=== PATIENT | male | born 1965 | race Caucasian/White ===

== ENCOUNTER 2022-08-17 17:13 | Inpatient (IN) | payer OTHER ==
[2022-08-17 18:37] VITALS: BMI 21.6
[2022-08-17] MEDS ORDERED: ONDANSETRON *ODT* 4 MG TABLET SL PRN (19:13)
[2022-08-17] MEDS ORDERED: MAG HYDROX/AL HYDROX/SIMETH 30 ML UNIT-DOSE CUP PO PRN (19:13)
[2022-08-17] MEDS ORDERED: chlordiazePOXIDE HCL 25 MG CAPSULE PO PRN (19:13)
[2022-08-17] MEDS ORDERED: ACETAMINOPHEN 325 MG TABLET (FP) PO PRN ×2 (19:13)
[2022-08-17] MEDS ORDERED: LOPERAMIDE HCL 2 MG CAPSULE PO PRN (19:13)
[2022-08-17] MEDS ORDERED: DICYCLOMINE HCL 10 MG CAPSULE PO PRN (19:13)
[2022-08-17] MEDS ORDERED: BISMUTH SUBSALICYLATE 524 MG/30 ML PO PRN (19:13)
[2022-08-17] MEDS ORDERED: BENZOCAINE/MENTHOL (CHLORASEPTIC ) LOZENGE MM PRN (19:13)
[2022-08-17] MEDS ORDERED: IBUPROFEN 600 MG TABLET (FP) PO PRN (19:13)
[2022-08-17] MEDS ORDERED: MAGNESIUM HYDROX 2400MG/30ML ORAL SUSPENSION 30 ML CUP PO PRN (19:13)
[2022-08-17] MEDS ORDERED: NALOXONE HCL (KLOXXADO) 8 MG SPRAY NS PRN (19:13)
[2022-08-17] MEDS ORDERED: POLYETHYLENE GLYCOL (HEALTHYLAX) 3350 17 GM PACKET PO PRN (19:13)
[2022-08-17] MEDS ORDERED: MELATONIN 5 MG TABLETS PO SCH (22:00)
[2022-08-17] MEDS: ATORVASTATIN CA 40 MG TABLET (FP) PO SCH (22:23)
[2022-08-17] MEDS: THIAMINE HCL 100 MG TABLET (FP) PO SCH (22:24)
[2022-08-17] MEDS: chlordiazePOXIDE HCL 25 MG CAPSULE PO SCH (22:24)
[2022-08-17] MEDS: CARVEDILOL 12.5 MG TABLET (FP) PO SCH (22:24)
[2022-08-18] MEDS: chlordiazePOXIDE HCL 25 MG CAPSULE PO SCH ×4 (05:26→22:08)
[2022-08-18 08:49] LABS: HEMATOCRIT 38.5 % (35.4-49); HEMOGLOBIN 12.7 GM/dL (11.7-16.9); MCH 32.5 pg (25.7-33.7); MCHC 33.1 g/dl (32.0-35.9); MEAN CELL VOLUME 98.3 fl (80-96); MEAN PLT VOLUME 7.6 fl (7.5-11.1); PLATELET COUNT 242 10^3/uL (134-434); RBC 3.92 M/mm3 (4.00-5.60); RDW 14.3 % (11.9-15.9); WHITE BLOOD COUNT 4.2 K/mm3 (4.0-10.0)
[2022-08-18 08:55] LABS: ALBUMIN 3.6 g/dl (3.4-5.0); BLOOD UREA NITROGEN 12.1 mg/dL (7-18); CALCIUM 8.9 mg/dL (8.5-10.1)
[2022-08-18 09:00] LABS: CREATININE 0.8 mg/dL (0.55-1.3)
[2022-08-18 09:01] LABS: BILIRUBIN,TOTAL 1.1 mg/dL (0.2-1); TOT PROT 6.6 g/dl (6.4-8.2)
[2022-08-18] MEDS ORDERED: NICOTINE 21 MG/24 HOURS TOPICAL PATCH TD SCH (10:00)
[2022-08-18] MEDS: LOSARTAN POTASSIUM 50 MG TABLET PO SCH (10:11)
[2022-08-18] MEDS: CARVEDILOL 12.5 MG TABLET (FP) PO SCH ×2 (10:12→22:08)
[2022-08-18] MEDS: PRENATAL VITAMINS W/ FOLIC ACID TABLET (FP) PO SCH (10:12)
[2022-08-18] MEDS: NICOTINE 10 MG CARTRIDGE (INHALER) IH PRN (10:15)
[2022-08-18] MEDS ORDERED: ALBUTEROL SO4 HFA INHALER IH PRN (10:38)
[2022-08-18] MEDS ORDERED: NICOTINE 21 MG/24 HOURS TOPICAL PATCH TD PRN (10:41)
[2022-08-18] MEDS: NICOTINE POLACRILEX 4 MG GUM BUC PRN ×2 (18:10→20:51)
[2022-08-18] MEDS: BUDESONIDE/FORMETEROL FUMARATE 80/4.5 mcg INHALER IH SCH (22:08)
[2022-08-18] MEDS: THIAMINE HCL 100 MG TABLET (FP) PO SCH (22:08)
[2022-08-18] MEDS: traZODone HCL 50 MG TABLET (FP) PO PRN (22:08)
[2022-08-18] MEDS: ATORVASTATIN CA 40 MG TABLET (FP) PO SCH (22:08)
[2022-08-19] MEDS: chlordiazePOXIDE HCL 25 MG CAPSULE PO SCH ×4 (05:40→22:10)
[2022-08-19] MEDS: NICOTINE POLACRILEX 4 MG GUM BUC PRN ×4 (07:57→22:15)
[2022-08-19] MEDS: PRENATAL VITAMINS W/ FOLIC ACID TABLET (FP) PO SCH (10:02)
[2022-08-19] MEDS: CARVEDILOL 12.5 MG TABLET (FP) PO SCH ×2 (10:03→22:10)
[2022-08-19] MEDS: LOSARTAN POTASSIUM 50 MG TABLET PO SCH (10:04)
[2022-08-19] MEDS: BUDESONIDE/FORMETEROL FUMARATE 80/4.5 mcg INHALER IH SCH ×2 (10:04→22:09)
[2022-08-19] MEDS: hydrOXYzine PAMOATE 25 MG CAPSULE (FP) PO PRN (14:34)
[2022-08-19] MEDS: METHOCARBAMOL 500 MG TABLET PO PRN (14:34)
[2022-08-19] MEDS: GABAPENTIN 100 MG CAPSULE PO SCH ×2 (14:34→22:10)
[2022-08-19] MEDS: ESCITALOPRAM OXALATE 10 MG TABLET PO SCH (14:35)
[2022-08-19] MEDS ORDERED: traZODone HCL 50 MG TABLET (FP) PO SCH (22:00)
[2022-08-19] MEDS: ATORVASTATIN CA 40 MG TABLET (FP) PO SCH (22:10)
[2022-08-19] MEDS: THIAMINE HCL 100 MG TABLET (FP) PO SCH (22:10)
[2022-08-19] MEDS: traZODone HCL 50 MG TABLET (FP) PO PRN (22:12)
[2022-08-20] MEDS ORDERED: chlordiazePOXIDE HCL 10 MG CAPSULE PO PRN
[2022-08-20] MEDS: GABAPENTIN 100 MG CAPSULE PO SCH ×3 (05:21→22:16)
[2022-08-20] MEDS: chlordiazePOXIDE HCL 10 MG CAPSULE PO SCH ×4 (05:21→22:16)
[2022-08-20] MEDS: PRENATAL VITAMINS W/ FOLIC ACID TABLET (FP) PO SCH (10:12)
[2022-08-20] MEDS: IBUPROFEN 400 MG TABLET (FP) PO PRN (10:14)
[2022-08-20] MEDS: LOSARTAN POTASSIUM 50 MG TABLET PO SCH (10:14)
[2022-08-20] MEDS: CARVEDILOL 12.5 MG TABLET (FP) PO SCH ×2 (10:15→22:16)
[2022-08-20] MEDS: ESCITALOPRAM OXALATE 10 MG TABLET PO SCH (10:15)
[2022-08-20] MEDS: BUDESONIDE/FORMETEROL FUMARATE 80/4.5 mcg INHALER IH SCH ×2 (10:47→22:17)
[2022-08-20] MEDS: NICOTINE POLACRILEX 4 MG GUM BUC PRN ×2 (11:39→17:52)
[2022-08-20] MEDS: NICOTINE 10 MG CARTRIDGE (INHALER) IH PRN (21:00)
[2022-08-20] MEDS: ATORVASTATIN CA 40 MG TABLET (FP) PO SCH (22:16)
[2022-08-20] MEDS: traZODone HCL 50 MG TABLET (FP) PO PRN (22:16)
[2022-08-20] MEDS: THIAMINE HCL 100 MG TABLET (FP) PO SCH (22:16)
[2022-08-21] MEDS: GABAPENTIN 100 MG CAPSULE PO SCH ×3 (05:17→21:15)
[2022-08-21] MEDS: chlordiazePOXIDE HCL 10 MG CAPSULE PO SCH ×2 (05:17→17:37)
[2022-08-21] MEDS: CARVEDILOL 12.5 MG TABLET (FP) PO SCH ×2 (10:00→21:14)
[2022-08-21] MEDS: ESCITALOPRAM OXALATE 10 MG TABLET PO SCH (10:00)
[2022-08-21] MEDS: PRENATAL VITAMINS W/ FOLIC ACID TABLET (FP) PO SCH (10:00)
[2022-08-21] MEDS: BUDESONIDE/FORMETEROL FUMARATE 80/4.5 mcg INHALER IH SCH ×2 (10:00→21:17)
[2022-08-21] MEDS: METHOCARBAMOL 500 MG TABLET PO PRN (10:02)
[2022-08-21] MEDS: hydrOXYzine PAMOATE 25 MG CAPSULE (FP) PO PRN ×2 (10:02→20:51)
[2022-08-21] MEDS: LOSARTAN POTASSIUM 50 MG TABLET PO SCH (10:03)
[2022-08-21] MEDS: NICOTINE POLACRILEX 4 MG GUM BUC PRN ×2 (11:26→13:32)
[2022-08-21] MEDS: IBUPROFEN 400 MG TABLET (FP) PO PRN (17:39)
[2022-08-21] MEDS: traZODone HCL 50 MG TABLET (FP) PO PRN (21:14)
[2022-08-21] MEDS: ATORVASTATIN CA 40 MG TABLET (FP) PO SCH (21:15)
[2022-08-21] MEDS: THIAMINE HCL 100 MG TABLET (FP) PO SCH (21:18)
[2022-08-22] MEDS ORDERED: chlordiazePOXIDE HCL 10 MG CAPSULE PO ONE (05:00)
[2022-08-22] MEDS: GABAPENTIN 100 MG CAPSULE PO SCH (05:27)
[2022-08-22 05:54] VITALS: RESP 18; TEMP 97.5
[2022-08-22 09:21] VITALS: BP 122/81; PULSE 76
[2022-08-22] MEDS: BUDESONIDE/FORMETEROL FUMARATE 80/4.5 mcg INHALER IH SCH (10:13)
[2022-08-22] MEDS: PRENATAL VITAMINS W/ FOLIC ACID TABLET (FP) PO SCH (10:14)
[2022-08-22] MEDS: ESCITALOPRAM OXALATE 10 MG TABLET PO SCH (10:14)
[2022-08-22] MEDS: LOSARTAN POTASSIUM 50 MG TABLET PO SCH (10:14)
[2022-08-22] MEDS: CARVEDILOL 12.5 MG TABLET (FP) PO SCH ×2 (10:51→10:52)
== END 2022-08-22 10:18 | disposition home or self-care (01) | DRG 775 ==
LOC: YASAS 17:13 → Y6N 20:38
PROVIDERS: ADMIT Allergy & Immunology; ATTEND Surgery
PROC: HZ2ZZZZ Detoxification Services for Substance Abuse Treatment (ICD-10-PCS; principal; 2022-08-17)
DX: F10.230 Alcohol dependence with withdrawal, uncomplicated (principal); F17.213 Nicotine dependence, cigarettes, with withdrawal; F43.10 Post-traumatic stress disorder, unspecified; F41.9 Anxiety disorder, unspecified; F32.A Depression, unspecified; E78.5 Hyperlipidemia, unspecified; G47.00 Insomnia, unspecified; I10 Essential (primary) hypertension; J44.9 Chronic obstructive pulmonary disease, unspecified; I25.2 Old myocardial infarction; Z28.9 Immunization not carried out for unspecified reason; Z56.0 Unemployment, unspecified; Z59.01 Sheltered homelessness
CPT/HCPCS: 36415; 80053; 83036; 85027; 86780; C9803-CS; U0003; U0005

== ENCOUNTER 2022-09-10 16:19 | Inpatient (IN) | payer OTHER ==
[2022-09-10 16:57] VITALS: BMI 22.6
[2022-09-10] MEDS ORDERED: TRIMETHOBENZAMIDE HCL 200MG/2ML INJ IM ONE ×2 (17:23→17:34)
[2022-09-10] MEDS ORDERED: LORazepam 2 MG/ML SDV VIAL IM ONE (17:24)
[2022-09-10] MEDS ORDERED: MAG HYDROX/AL HYDROX/SIMETH 30 ML UNIT-DOSE CUP PO PRN (17:48)
[2022-09-10] MEDS ORDERED: NALOXONE HCL (KLOXXADO) 8 MG SPRAY NS PRN (17:48)
[2022-09-10] MEDS ORDERED: MAGNESIUM HYDROX 2400MG/30ML ORAL SUSPENSION 30 ML CUP PO PRN (17:48)
[2022-09-10] MEDS ORDERED: NICOTINE 10 MG CARTRIDGE (INHALER) IH PRN (17:48)
[2022-09-10] MEDS ORDERED: IBUPROFEN 600 MG TABLET (FP) PO PRN (17:48)
[2022-09-10] MEDS ORDERED: DICYCLOMINE HCL 10 MG CAPSULE PO PRN (17:48)
[2022-09-10] MEDS ORDERED: chlordiazePOXIDE HCL 25 MG CAPSULE PO PRN (17:48)
[2022-09-10] MEDS ORDERED: ONDANSETRON *ODT* 4 MG TABLET SL PRN (17:48)
[2022-09-10] MEDS ORDERED: BENZOCAINE/MENTHOL (CHLORASEPTIC ) LOZENGE MM PRN (17:48)
[2022-09-10] MEDS ORDERED: ACETAMINOPHEN 325 MG TABLET (FP) PO PRN (17:48)
[2022-09-10] MEDS ORDERED: LOPERAMIDE HCL 2 MG CAPSULE PO PRN (17:48)
[2022-09-10] MEDS ORDERED: guaiFENesin 200 MG/10 ML 10 ML UNIT-DOSE CUPS PO PRN (17:48)
[2022-09-10] MEDS ORDERED: IBUPROFEN 400 MG TABLET (FP) PO PRN (17:48)
[2022-09-10] MEDS ORDERED: BISMUTH SUBSALICYLATE 524 MG/30 ML PO PRN (17:48)
[2022-09-10] MEDS ORDERED: POLYETHYLENE GLYCOL (HEALTHYLAX) 3350 17 GM PACKET PO PRN (17:48)
[2022-09-10] MEDS ORDERED: MELATONIN 5 MG TABLETS PO SCH (22:00)
[2022-09-10] MEDS: THIAMINE HCL 100 MG TABLET (FP) PO SCH (22:50)
[2022-09-10] MEDS: METHOCARBAMOL 500 MG TABLET PO PRN (22:51)
[2022-09-10] MEDS: chlordiazePOXIDE HCL 25 MG CAPSULE PO SCH (22:52)
[2022-09-10] MEDS: hydrOXYzine PAMOATE 25 MG CAPSULE (FP) PO PRN (22:52)
[2022-09-11] MEDS: chlordiazePOXIDE HCL 25 MG CAPSULE PO SCH ×4 (06:17→22:17)
[2022-09-11] MEDS: PRENATAL VITAMINS W/ FOLIC ACID TABLET (FP) PO SCH (10:21)
[2022-09-11 11:01] LABS: HEMATOCRIT 39.8 % (35.4-49); HEMOGLOBIN 13.3 GM/dL (11.7-16.9); MCHC 33.3 g/dl (32.0-35.9); MEAN CELL VOLUME 98.8 fl (80-96); MEAN PLT VOLUME 8.3 fl (7.5-11.1); PLATELET COUNT 335 10^3/uL (134-434); RBC 4.02 M/mm3 (4.00-5.60); RDW 13.9 % (11.9-15.9); WHITE BLOOD COUNT 5.5 K/mm3 (4.0-10.0)
[2022-09-11 11:25] LABS: ALBUMIN 3.6 g/dl (3.4-5.0); BLOOD UREA NITROGEN 10.4 mg/dL (7-18); CALCIUM 9.6 mg/dL (8.5-10.1)
[2022-09-11 11:28] LABS: CREATININE 0.8 mg/dL (0.55-1.3)
[2022-09-11 11:29] LABS: BILIRUBIN,TOTAL 0.2 mg/dL (0.2-1)
[2022-09-11 11:30] LABS: TOT PROT 7.1 g/dl (6.4-8.2)
[2022-09-11] MEDS: ACETAMINOPHEN 325 MG TABLET (FP) PO PRN (17:20)
[2022-09-11] MEDS: NICOTINE POLACRILEX 2 MG GUM BUC PRN ×2 (17:22→22:56)
[2022-09-11] MEDS: METHOCARBAMOL 500 MG TABLET PO PRN (22:16)
[2022-09-11] MEDS: traZODone HCL 100 MG TABLET (FP) PO SCH (22:17)
[2022-09-11] MEDS: THIAMINE HCL 100 MG TABLET (FP) PO SCH (22:17)
[2022-09-11] MEDS: GABAPENTIN 100 MG CAPSULE PO SCH (22:17)
[2022-09-12] MEDS: chlordiazePOXIDE HCL 25 MG CAPSULE PO SCH ×4 (06:04→22:36)
[2022-09-12] MEDS: GABAPENTIN 100 MG CAPSULE PO SCH ×3 (06:04→22:33)
[2022-09-12] MEDS: NICOTINE POLACRILEX 2 MG GUM BUC PRN ×3 (07:35→22:40)
[2022-09-12] MEDS: ESCITALOPRAM OXALATE 10 MG TABLET PO SCH (10:34)
[2022-09-12] MEDS: PRENATAL VITAMINS W/ FOLIC ACID TABLET (FP) PO SCH (10:34)
[2022-09-12] MEDS ORDERED: ALBUTEROL SO4 HFA INHALER IH PRN (15:18)
[2022-09-12] MEDS: THIAMINE HCL 100 MG TABLET (FP) PO SCH (22:32)
[2022-09-12] MEDS: traZODone HCL 100 MG TABLET (FP) PO SCH (22:33)
[2022-09-12] MEDS: BUDESONIDE/FORMETEROL FUMARATE 80/4.5 mcg INHALER IH SCH (22:34)
[2022-09-12] MEDS: ATORVASTATIN CA 40 MG TABLET (FP) PO SCH (22:34)
[2022-09-13] MEDS ORDERED: chlordiazePOXIDE HCL 10 MG CAPSULE PO PRN
[2022-09-13] MEDS: GABAPENTIN 100 MG CAPSULE PO SCH ×3 (05:27→22:12)
[2022-09-13] MEDS: chlordiazePOXIDE HCL 10 MG CAPSULE PO SCH ×4 (05:27→22:13)
[2022-09-13] MEDS: BUDESONIDE/FORMETEROL FUMARATE 80/4.5 mcg INHALER IH SCH ×2 (10:18→22:16)
[2022-09-13] MEDS: ESCITALOPRAM OXALATE 10 MG TABLET PO SCH (10:18)
[2022-09-13] MEDS: PRENATAL VITAMINS W/ FOLIC ACID TABLET (FP) PO SCH (10:18)
[2022-09-13] MEDS: NICOTINE POLACRILEX 2 MG GUM BUC PRN (15:55)
[2022-09-13] MEDS: NICOTINE POLACRILEX 4 MG GUM BUC PRN ×2 (19:53→22:20)
[2022-09-13] MEDS: traZODone HCL 100 MG TABLET (FP) PO SCH (22:12)
[2022-09-13] MEDS: METHOCARBAMOL 500 MG TABLET PO PRN (22:18)
[2022-09-13] MEDS: ACETAMINOPHEN 325 MG TABLET (FP) PO PRN (22:19)
[2022-09-13] MEDS: ATORVASTATIN CA 40 MG TABLET (FP) PO SCH (22:32)
[2022-09-13] MEDS: THIAMINE HCL 100 MG TABLET (FP) PO SCH (22:59)
[2022-09-14] MEDS ORDERED: chlordiazePOXIDE HCL 10 MG CAPSULE PO SCH (05:00)
[2022-09-14] MEDS: GABAPENTIN 100 MG CAPSULE PO SCH ×2 (05:48→13:39)
[2022-09-14] MEDS: NICOTINE POLACRILEX 4 MG GUM BUC PRN (06:56)
[2022-09-14] MEDS: PRENATAL VITAMINS W/ FOLIC ACID TABLET (FP) PO SCH (10:09)
[2022-09-14] MEDS: ESCITALOPRAM OXALATE 10 MG TABLET PO SCH (10:10)
[2022-09-14] MEDS: BUDESONIDE/FORMETEROL FUMARATE 80/4.5 mcg INHALER IH SCH (10:10)
[2022-09-14] MEDS: hydrOXYzine PAMOATE 25 MG CAPSULE (FP) PO PRN (10:11)
[2022-09-14 11:40] VITALS: BP 140/101; PULSE 76; RESP 16; TEMP 96
[2022-09-15] MEDS ORDERED: chlordiazePOXIDE HCL 10 MG CAPSULE PO ONE (05:00)
== END 2022-09-14 13:15 | disposition other institution (70) | DRG 775 ==
LOC: YASAS 16:19 → Y3N 18:08
PROVIDERS: ADMIT Allergy & Immunology; ATTEND Family Medicine
PROC: HZ2ZZZZ Detoxification Services for Substance Abuse Treatment (ICD-10-PCS; principal; 2022-09-10)
DX: F10.230 Alcohol dependence with withdrawal, uncomplicated (principal); F12.20 Cannabis dependence, uncomplicated; F17.210 Nicotine dependence, cigarettes, uncomplicated; F10.282 Alcohol dependence with alcohol-induced sleep disorder; E78.2 Mixed hyperlipidemia; I10 Essential (primary) hypertension; J41.0 Simple chronic bronchitis; I25.2 Old myocardial infarction; Z28.310 Unvaccinated for COVID-19; Z28.9 Immunization not carried out for unspecified reason; Z56.0 Unemployment, unspecified; Z59.01 Sheltered homelessness
CPT/HCPCS: 36415; 80053; 85027; 86780; C9803-CS; U0003; U0005

== ENCOUNTER 2023-01-18 13:47 | Inpatient (IN) | payer OTHER ==
[2023-01-18 15:25] VITALS: BMI 23.7
[2023-01-18] MEDS ORDERED: DICYCLOMINE HCL 10 MG CAPSULE PO PRN (20:45)
[2023-01-18] MEDS ORDERED: MAG HYDROX/AL HYDROX/SIMETH 30 ML UNIT-DOSE CUP PO PRN (20:45)
[2023-01-18] MEDS ORDERED: BENZONATATE 200 MG CAPSULE PO PRN (20:45)
[2023-01-18] MEDS ORDERED: NICOTINE 10 MG CARTRIDGE (INHALER) IH PRN (20:45)
[2023-01-18] MEDS ORDERED: IBUPROFEN 400 MG TABLET (FP) PO PRN (20:45)
[2023-01-18] MEDS ORDERED: ONDANSETRON *ODT* 4 MG TABLET SL PRN (20:45)
[2023-01-18] MEDS ORDERED: POLYETHYLENE GLYCOL (HEALTHYLAX) 3350 17 GM PACKET PO PRN (20:45)
[2023-01-18] MEDS ORDERED: ACETAMINOPHEN 325 MG TABLET (FP) PO PRN (20:45)
[2023-01-18] MEDS ORDERED: BENZOCAINE/MENTHOL (CHLORASEPTIC ) LOZENGE MM PRN (20:45)
[2023-01-18] MEDS ORDERED: NALOXONE HCL (KLOXXADO) 8 MG SPRAY NS PRN (20:45)
[2023-01-18] MEDS ORDERED: MAGNESIUM HYDROX 2400MG/30ML ORAL SUSPENSION 30 ML CUP PO PRN (20:45)
[2023-01-18] MEDS ORDERED: NALOXONE HCL 0.4 MG/ML VIAL IM PRN (20:45)
[2023-01-18] MEDS ORDERED: LOPERAMIDE HCL 2 MG CAPSULE PO PRN (20:45)
[2023-01-18] MEDS ORDERED: BISMUTH SUBSALICYLATE 524 MG/30 ML PO PRN (20:45)
[2023-01-18] MEDS ORDERED: guaiFENesin 600 MG TABLET.ER (FP) PO PRN (20:45)
[2023-01-18] MEDS ORDERED: cloNIDine HCL 0.1 MG TABLET PO ONE (20:58)
[2023-01-18] MEDS ORDERED: cloNIDine HCL 0.1 MG TABLET ONE (21:19)
[2023-01-18] MEDS ORDERED: chlordiazePOXIDE HCL 25 MG CAPSULE ONE (21:19)
[2023-01-18] MEDS: chlordiazePOXIDE HCL 25 MG CAPSULE PO PRN (21:26)
[2023-01-18] MEDS ORDERED: MELATONIN 5 MG TABLETS PO SCH (22:00)
[2023-01-18] MEDS: chlordiazePOXIDE HCL 25 MG CAPSULE PO SCH (23:39)
[2023-01-18] MEDS: THIAMINE HCL 100 MG TABLET (FP) PO SCH (23:42)
[2023-01-19] MEDS: chlordiazePOXIDE HCL 25 MG CAPSULE PO SCH ×4 (05:20→22:21)
[2023-01-19] MEDS ORDERED: NICOTINE 21 MG/24 HOURS TOPICAL PATCH TD SCH (10:00)
[2023-01-19] MEDS: METHOCARBAMOL 500 MG TABLET PO PRN (10:24)
[2023-01-19] MEDS: PRENATAL VITAMINS W/ FOLIC ACID TABLET (FP) PO SCH (10:25)
[2023-01-19] MEDS: LOSARTAN POTASSIUM 50 MG TABLET PO SCH (10:25)
[2023-01-19] MEDS: CARVEDILOL 12.5 MG TABLET (FP) PO SCH ×2 (10:25→22:19)
[2023-01-19] MEDS: BUDESONIDE/FORMETEROL FUMARATE 80/4.5 mcg INHALER IH SCH ×2 (10:27→22:22)
[2023-01-19] MEDS: IBUPROFEN 600 MG TABLET (FP) PO PRN ×2 (10:31→19:16)
[2023-01-19 11:02] LABS: POTASSIUM 4.1 mmol/L (3.5-5.1)
[2023-01-19 11:04] LABS: CALCIUM 9.1 mg/dL (8.5-10.1); HEMATOCRIT 35.1 % (35.4-49); HEMOGLOBIN 12.2 GM/dL (11.7-16.9); MCH 32.9 pg (25.7-33.7); MCHC 34.8 g/dl (32.0-35.9); MEAN CELL VOLUME 94.6 fl (80-96); MEAN PLT VOLUME 7.8 fl (7.5-11.1); PLATELET COUNT 253 10^3/uL (134-434); RBC 3.71 M/mm3 (4.00-5.60); RDW 14.2 % (11.9-15.9); WHITE BLOOD COUNT 4.2 K/mm3 (4.0-10.0)
[2023-01-19 11:05] LABS: ALBUMIN 3.6 g/dl (3.4-5.0); BLOOD UREA NITROGEN 6.8 mg/dL (7-18)
[2023-01-19 11:08] LABS: CREATININE 0.7 mg/dL (0.55-1.3)
[2023-01-19 11:09] LABS: BILIRUBIN,TOTAL 0.6 mg/dL (0.2-1); TOT PROT 7.1 g/dl (6.4-8.2)
[2023-01-19] MEDS: NICOTINE POLACRILEX 4 MG GUM BUC PRN ×3 (14:04→22:24)
[2023-01-19] MEDS: GABAPENTIN 100 MG CAPSULE PO SCH ×2 (14:04→22:19)
[2023-01-19] MEDS: busPIRone HCL 10 MG TABLET (FP) PO SCH ×2 (14:04→22:21)
[2023-01-19] MEDS: chlordiazePOXIDE HCL 25 MG CAPSULE PO PRN ×2 (14:09→19:14)
[2023-01-19] MEDS: traZODone HCL 100 MG TABLET (FP) PO SCH (22:19)
[2023-01-19] MEDS: ATORVASTATIN CA 40 MG TABLET (FP) PO SCH (22:19)
[2023-01-19] MEDS: THIAMINE HCL 100 MG TABLET (FP) PO SCH (22:19)
[2023-01-20] MEDS: busPIRone HCL 10 MG TABLET (FP) PO SCH ×3 (05:54→22:29)
[2023-01-20] MEDS: chlordiazePOXIDE HCL 25 MG CAPSULE PO SCH ×4 (05:54→22:30)
[2023-01-20] MEDS: GABAPENTIN 100 MG CAPSULE PO SCH ×3 (07:18→22:29)
[2023-01-20] MEDS: CARVEDILOL 12.5 MG TABLET (FP) PO SCH ×2 (10:06→22:30)
[2023-01-20] MEDS: METHOCARBAMOL 500 MG TABLET PO PRN (10:06)
[2023-01-20] MEDS: PRENATAL VITAMINS W/ FOLIC ACID TABLET (FP) PO SCH (10:06)
[2023-01-20] MEDS: BUDESONIDE/FORMETEROL FUMARATE 80/4.5 mcg INHALER IH SCH ×2 (10:07→22:28)
[2023-01-20] MEDS: LOSARTAN POTASSIUM 50 MG TABLET PO SCH (11:58)
[2023-01-20] MEDS: ESCITALOPRAM OXALATE 10 MG TABLET PO SCH (11:59)
[2023-01-20] MEDS: NICOTINE POLACRILEX 4 MG GUM BUC PRN ×3 (13:45→21:01)
[2023-01-20] MEDS: ATORVASTATIN CA 40 MG TABLET (FP) PO SCH (22:29)
[2023-01-20] MEDS: THIAMINE HCL 100 MG TABLET (FP) PO SCH (22:29)
[2023-01-20] MEDS: traZODone HCL 100 MG TABLET (FP) PO SCH (22:30)
[2023-01-21] MEDS ORDERED: chlordiazePOXIDE HCL 10 MG CAPSULE PO PRN
[2023-01-21] MEDS: chlordiazePOXIDE HCL 10 MG CAPSULE PO SCH ×4 (05:58→22:15)
[2023-01-21] MEDS: busPIRone HCL 10 MG TABLET (FP) PO SCH ×3 (06:00→22:12)
[2023-01-21] MEDS: GABAPENTIN 100 MG CAPSULE PO SCH ×3 (06:00→22:12)
[2023-01-21] MEDS: PRENATAL VITAMINS W/ FOLIC ACID TABLET (FP) PO SCH (10:20)
[2023-01-21] MEDS: ESCITALOPRAM OXALATE 10 MG TABLET PO SCH (10:20)
[2023-01-21] MEDS: METHOCARBAMOL 500 MG TABLET PO PRN (10:20)
[2023-01-21] MEDS: LOSARTAN POTASSIUM 50 MG TABLET PO SCH (10:20)
[2023-01-21] MEDS: CARVEDILOL 12.5 MG TABLET (FP) PO SCH ×2 (10:20→22:12)
[2023-01-21] MEDS: BUDESONIDE/FORMETEROL FUMARATE 80/4.5 mcg INHALER IH SCH ×2 (10:20→22:13)
[2023-01-21] MEDS: NICOTINE POLACRILEX 4 MG GUM BUC PRN ×4 (10:23→22:18)
[2023-01-21] MEDS: ATORVASTATIN CA 40 MG TABLET (FP) PO SCH (22:12)
[2023-01-21] MEDS: THIAMINE HCL 100 MG TABLET (FP) PO SCH (22:12)
[2023-01-21] MEDS: traZODone HCL 100 MG TABLET (FP) PO SCH (22:12)
[2023-01-22] MEDS: busPIRone HCL 10 MG TABLET (FP) PO SCH ×3 (05:41→21:11)
[2023-01-22] MEDS: chlordiazePOXIDE HCL 10 MG CAPSULE PO SCH ×2 (05:41→17:34)
[2023-01-22] MEDS: GABAPENTIN 100 MG CAPSULE PO SCH ×3 (05:41→21:12)
[2023-01-22] MEDS: NICOTINE POLACRILEX 4 MG GUM BUC PRN ×3 (08:47→22:08)
[2023-01-22] MEDS: ESCITALOPRAM OXALATE 10 MG TABLET PO SCH (09:52)
[2023-01-22] MEDS: PRENATAL VITAMINS W/ FOLIC ACID TABLET (FP) PO SCH (09:52)
[2023-01-22] MEDS: CARVEDILOL 12.5 MG TABLET (FP) PO SCH ×2 (09:52→21:12)
[2023-01-22] MEDS: LOSARTAN POTASSIUM 50 MG TABLET PO SCH (09:52)
[2023-01-22] MEDS: BUDESONIDE/FORMETEROL FUMARATE 80/4.5 mcg INHALER IH SCH ×2 (09:53→22:08)
[2023-01-22] MEDS: METHOCARBAMOL 500 MG TABLET PO PRN (09:53)
[2023-01-22] MEDS: ATORVASTATIN CA 40 MG TABLET (FP) PO SCH (21:12)
[2023-01-22] MEDS: THIAMINE HCL 100 MG TABLET (FP) PO SCH (21:12)
[2023-01-22] MEDS ORDERED: traZODone HCL 50 MG TABLET (FP) PO SCH (22:00)
[2023-01-23] MEDS ORDERED: chlordiazePOXIDE HCL 10 MG CAPSULE PO ONE (05:00)
[2023-01-23] MEDS: busPIRone HCL 10 MG TABLET (FP) PO SCH (05:28)
[2023-01-23] MEDS: GABAPENTIN 100 MG CAPSULE PO SCH (05:28)
[2023-01-23] MEDS: ALBUTEROL SO4 HFA INHALER IH PRN ×2 (06:06→10:20)
[2023-01-23 06:37] VITALS: RESP 18
[2023-01-23] MEDS: NICOTINE POLACRILEX 4 MG GUM BUC PRN ×2 (07:09→10:22)
[2023-01-23 08:58] VITALS: BP 143/86; PULSE 68; TEMP 98.3
[2023-01-23] MEDS: LOSARTAN POTASSIUM 50 MG TABLET PO SCH (10:18)
[2023-01-23] MEDS: CARVEDILOL 12.5 MG TABLET (FP) PO SCH (10:18)
[2023-01-23] MEDS: METHOCARBAMOL 500 MG TABLET PO PRN (10:18)
[2023-01-23] MEDS: PRENATAL VITAMINS W/ FOLIC ACID TABLET (FP) PO SCH (10:18)
[2023-01-23] MEDS: ESCITALOPRAM OXALATE 10 MG TABLET PO SCH (10:18)
[2023-01-23] MEDS: BUDESONIDE/FORMETEROL FUMARATE 80/4.5 mcg INHALER IH SCH (10:20)
== END 2023-01-23 12:33 | disposition other institution (70) | DRG 775 ==
LOC: YASAS 13:47 → Y6N 22:00
PROVIDERS: ADMIT Allergy & Immunology; ATTEND Surgery
PROC: HZ2ZZZZ Detoxification Services for Substance Abuse Treatment (ICD-10-PCS; principal; 2023-01-18)
DX: F10.230 Alcohol dependence with withdrawal, uncomplicated (principal); F12.20 Cannabis dependence, uncomplicated; F17.210 Nicotine dependence, cigarettes, uncomplicated; F32.A Depression, unspecified; F43.10 Post-traumatic stress disorder, unspecified; J41.0 Simple chronic bronchitis; E78.5 Hyperlipidemia, unspecified; I10 Essential (primary) hypertension; I25.2 Old myocardial infarction; Z86.59 Personal history of other mental and behavioral disorders
CPT/HCPCS: 36415; 80053; 82962; 83036; 85027; 86780; 87635

== ENCOUNTER 2023-01-23 12:42 | Inpatient (IN) | payer OTHER ==
[2023-01-23] MEDS ORDERED: AMMONIUM LACTATE 12% LOTION 225 GM BOTTLE TP PRN (13:02)
[2023-01-23] MEDS ORDERED: MAGNESIUM HYDROX 2400MG/30ML ORAL SUSPENSION 30 ML CUP PO PRN (13:02)
[2023-01-23] MEDS ORDERED: BACLOFEN 10 MG TABLET (FP) PO PRN (13:02)
[2023-01-23] MEDS ORDERED: BENZONATATE 200 MG CAPSULE PO PRN (13:02)
[2023-01-23] MEDS ORDERED: hydrOXYzine PAMOATE 25 MG CAPSULE (FP) PO PRN (13:02)
[2023-01-23] MEDS ORDERED: IBUPROFEN 600 MG TABLET (FP) PO PRN (13:02)
[2023-01-23] MEDS ORDERED: POLYETHYLENE GLYCOL (HEALTHYLAX) 3350 17 GM PACKET PO PRN (13:02)
[2023-01-23] MEDS ORDERED: NALOXONE HCL (KLOXXADO) 8 MG SPRAY NS PRN (13:02)
[2023-01-23] MEDS ORDERED: guaiFENesin 600 MG TABLET.ER (FP) PO PRN (13:02)
[2023-01-23] MEDS ORDERED: LOPERAMIDE HCL 2 MG CAPSULE PO PRN (13:02)
[2023-01-23] MEDS ORDERED: NICOTINE 21 MG/24 HOURS TOPICAL PATCH TD PRN (13:02)
[2023-01-23] MEDS ORDERED: MAG HYDROX/AL HYDROX/SIMETH 30 ML UNIT-DOSE CUP PO PRN (13:02)
[2023-01-23] MEDS ORDERED: NALOXONE HCL 0.4 MG/ML VIAL IVPUSH PRN (13:02)
[2023-01-23] MEDS ORDERED: BENZOCAINE/MENTHOL (CHLORASEPTIC ) LOZENGE MM PRN (13:02)
[2023-01-23] MEDS ORDERED: ACETAMINOPHEN 325 MG TABLET (FP) PO PRN (13:02)
[2023-01-23] MEDS ORDERED: ALBUTEROL SO4 HFA INHALER IH PRN (13:09)
[2023-01-23] MEDS: GABAPENTIN 100 MG CAPSULE PO SCH ×2 (14:29→21:49)
[2023-01-23] MEDS: ATORVASTATIN CA 40 MG TABLET (FP) PO SCH (21:50)
[2023-01-23] MEDS: busPIRone HCL 10 MG TABLET (FP) PO SCH (21:50)
[2023-01-23] MEDS: THIAMINE HCL 100 MG TABLET (FP) PO SCH (21:50)
[2023-01-23] MEDS: BUDESONIDE/FORMETEROL FUMARATE 80/4.5 mcg INHALER IH SCH (21:50)
[2023-01-23] MEDS: MELATONIN 5 MG TABLETS PO SCH (21:50)
[2023-01-23] MEDS ORDERED: traZODone HCL 50 MG TABLET (FP) PO SCH (22:00)
[2023-01-23] MEDS ORDERED: CARVEDILOL 6.25 MG TABLET (FP) PO SCH (23:27)
[2023-01-23] MEDS: CARVEDILOL 6.25 MG TABLET (FP) PO SCH (23:44)
[2023-01-23] MEDS: CARVEDILOL 12.5 MG TABLET (FP) PO SCH (23:45)
[2023-01-24] MEDS: busPIRone HCL 10 MG TABLET (FP) PO SCH ×3 (06:18→21:18)
[2023-01-24] MEDS: hydrOXYzine PAMOATE 25 MG CAPSULE (FP) PO PRN ×3 (06:19→21:21)
[2023-01-24] MEDS: GABAPENTIN 100 MG CAPSULE PO SCH ×3 (06:19→21:18)
[2023-01-24] MEDS: NICOTINE POLACRILEX 4 MG GUM BUC PRN ×4 (08:30→21:22)
[2023-01-24] MEDS ORDERED: busPIRone HCL 10 MG TABLET (FP) PO SCH (10:00)
[2023-01-24] MEDS: CARVEDILOL 12.5 MG TABLET (FP) PO SCH ×3 (10:10→22:47)
[2023-01-24] MEDS: PRENATAL VITAMINS W/ FOLIC ACID TABLET (FP) PO SCH (10:10)
[2023-01-24] MEDS: ESCITALOPRAM OXALATE 10 MG TABLET PO SCH (10:10)
[2023-01-24] MEDS: BUDESONIDE/FORMETEROL FUMARATE 80/4.5 mcg INHALER IH SCH ×2 (10:10→21:17)
[2023-01-24] MEDS: LOSARTAN POTASSIUM 50 MG TABLET PO SCH (10:10)
[2023-01-24] MEDS: CARVEDILOL 6.25 MG TABLET (FP) PO SCH (10:11)
[2023-01-24] MEDS: ACAMPROSATE CALCIUM 333 MG TABLET.DR PO SCH ×2 (14:05→21:18)
[2023-01-24] MEDS: CLOTRIMAZOLE 1% CREAM TP SCH ×2 (14:18→21:20)
[2023-01-24] MEDS: MELATONIN 5 MG TABLETS PO SCH (21:17)
[2023-01-24] MEDS: THIAMINE HCL 100 MG TABLET (FP) PO SCH (21:18)
[2023-01-24] MEDS: traZODone HCL 50 MG TABLET (FP) PO SCH (21:18)
[2023-01-24] MEDS: ATORVASTATIN CA 40 MG TABLET (FP) PO SCH (21:18)
[2023-01-25] MEDS: ACAMPROSATE CALCIUM 333 MG TABLET.DR PO SCH ×3 (06:48→21:13)
[2023-01-25] MEDS: GABAPENTIN 100 MG CAPSULE PO SCH ×3 (06:48→21:12)
[2023-01-25] MEDS: busPIRone HCL 10 MG TABLET (FP) PO SCH ×3 (06:48→21:12)
[2023-01-25] MEDS: NICOTINE 10 MG CARTRIDGE (INHALER) IH PRN ×2 (06:50→19:43)
[2023-01-25] MEDS: LOSARTAN POTASSIUM 50 MG TABLET PO SCH (09:51)
[2023-01-25] MEDS: PRENATAL VITAMINS W/ FOLIC ACID TABLET (FP) PO SCH (09:51)
[2023-01-25] MEDS: BUDESONIDE/FORMETEROL FUMARATE 80/4.5 mcg INHALER IH SCH ×2 (09:51→21:12)
[2023-01-25] MEDS: ESCITALOPRAM OXALATE 10 MG TABLET PO SCH (09:51)
[2023-01-25] MEDS: CLOTRIMAZOLE 1% CREAM TP SCH ×2 (09:51→21:13)
[2023-01-25] MEDS: CARVEDILOL 12.5 MG TABLET (FP) PO SCH ×2 (09:51→21:12)
[2023-01-25] MEDS: hydrOXYzine PAMOATE 25 MG CAPSULE (FP) PO PRN (09:55)
[2023-01-25] MEDS: NICOTINE POLACRILEX 4 MG GUM BUC PRN ×3 (09:56→19:42)
[2023-01-25] MEDS: MELATONIN 5 MG TABLETS PO SCH (21:12)
[2023-01-25] MEDS: THIAMINE HCL 100 MG TABLET (FP) PO SCH (21:12)
[2023-01-25] MEDS: ATORVASTATIN CA 40 MG TABLET (FP) PO SCH (21:12)
[2023-01-25] MEDS: traZODone HCL 50 MG TABLET (FP) PO SCH (21:13)
[2023-01-26] MEDS: ACAMPROSATE CALCIUM 333 MG TABLET.DR PO SCH ×3 (06:33→21:09)
[2023-01-26] MEDS: GABAPENTIN 100 MG CAPSULE PO SCH ×3 (06:33→21:09)
[2023-01-26] MEDS: busPIRone HCL 10 MG TABLET (FP) PO SCH ×3 (06:34→21:09)
[2023-01-26] MEDS: NICOTINE 10 MG CARTRIDGE (INHALER) IH PRN (06:36)
[2023-01-26] MEDS: ESCITALOPRAM OXALATE 10 MG TABLET PO SCH (09:40)
[2023-01-26] MEDS: LOSARTAN POTASSIUM 50 MG TABLET PO SCH (09:40)
[2023-01-26] MEDS: PRENATAL VITAMINS W/ FOLIC ACID TABLET (FP) PO SCH (09:40)
[2023-01-26] MEDS: hydrOXYzine PAMOATE 25 MG CAPSULE (FP) PO PRN (09:40)
[2023-01-26] MEDS: BUDESONIDE/FORMETEROL FUMARATE 80/4.5 mcg INHALER IH SCH ×2 (09:41→21:08)
[2023-01-26] MEDS: CARVEDILOL 12.5 MG TABLET (FP) PO SCH ×2 (09:42→21:09)
[2023-01-26] MEDS: CLOTRIMAZOLE 1% CREAM TP SCH ×2 (09:44→21:13)
[2023-01-26] MEDS: NICOTINE POLACRILEX 4 MG GUM BUC PRN ×2 (14:34→21:13)
[2023-01-26] MEDS: traZODone HCL 50 MG TABLET (FP) PO SCH (21:09)
[2023-01-26] MEDS: MELATONIN 5 MG TABLETS PO SCH (21:09)
[2023-01-26] MEDS: ATORVASTATIN CA 40 MG TABLET (FP) PO SCH (21:09)
[2023-01-26] MEDS: THIAMINE HCL 100 MG TABLET (FP) PO SCH (21:09)
[2023-01-27] MEDS: ACAMPROSATE CALCIUM 333 MG TABLET.DR PO SCH ×3 (06:26→21:15)
[2023-01-27] MEDS: GABAPENTIN 100 MG CAPSULE PO SCH ×3 (06:26→21:17)
[2023-01-27] MEDS: busPIRone HCL 10 MG TABLET (FP) PO SCH ×3 (06:26→21:16)
[2023-01-27] MEDS: NICOTINE POLACRILEX 4 MG GUM BUC PRN ×5 (06:28→21:19)
[2023-01-27] MEDS: BUDESONIDE/FORMETEROL FUMARATE 80/4.5 mcg INHALER IH SCH ×2 (10:46→21:18)
[2023-01-27] MEDS: PRENATAL VITAMINS W/ FOLIC ACID TABLET (FP) PO SCH (10:46)
[2023-01-27] MEDS: LOSARTAN POTASSIUM 50 MG TABLET PO SCH (10:47)
[2023-01-27] MEDS: ESCITALOPRAM OXALATE 10 MG TABLET PO SCH (10:47)
[2023-01-27] MEDS: CARVEDILOL 12.5 MG TABLET (FP) PO SCH ×2 (10:47→21:16)
[2023-01-27] MEDS: CLOTRIMAZOLE 1% CREAM TP SCH ×2 (10:48→21:17)
[2023-01-27] MEDS: NICOTINE 10 MG CARTRIDGE (INHALER) IH PRN ×2 (10:51→19:01)
[2023-01-27] MEDS: hydrOXYzine PAMOATE 25 MG CAPSULE (FP) PO PRN (13:52)
[2023-01-27] MEDS: MELATONIN 5 MG TABLETS PO SCH (21:15)
[2023-01-27] MEDS: THIAMINE HCL 100 MG TABLET (FP) PO SCH (21:15)
[2023-01-27] MEDS: traZODone HCL 50 MG TABLET (FP) PO SCH (21:16)
[2023-01-27] MEDS: ATORVASTATIN CA 40 MG TABLET (FP) PO SCH (21:16)
[2023-01-28] MEDS: ACAMPROSATE CALCIUM 333 MG TABLET.DR PO SCH ×3 (06:12→21:00)
[2023-01-28] MEDS: GABAPENTIN 100 MG CAPSULE PO SCH ×3 (06:13→21:01)
[2023-01-28] MEDS: busPIRone HCL 10 MG TABLET (FP) PO SCH ×3 (06:13→20:59)
[2023-01-28] MEDS: NICOTINE POLACRILEX 4 MG GUM BUC PRN ×3 (06:14→14:24)
[2023-01-28] MEDS: hydrOXYzine PAMOATE 25 MG CAPSULE (FP) PO PRN (07:01)
[2023-01-28] MEDS: COLLOIDAL OATMEAL 1 BAR EACH TP PRN (07:07)
[2023-01-28] MEDS: PRENATAL VITAMINS W/ FOLIC ACID TABLET (FP) PO SCH (09:58)
[2023-01-28] MEDS: BUDESONIDE/FORMETEROL FUMARATE 80/4.5 mcg INHALER IH SCH ×2 (09:58→21:04)
[2023-01-28] MEDS: CLOTRIMAZOLE 1% CREAM TP SCH ×2 (09:59→21:04)
[2023-01-28] MEDS: LOSARTAN POTASSIUM 50 MG TABLET PO SCH (09:59)
[2023-01-28] MEDS: CARVEDILOL 12.5 MG TABLET (FP) PO SCH ×2 (09:59→21:00)
[2023-01-28] MEDS: ESCITALOPRAM OXALATE 10 MG TABLET PO SCH (09:59)
[2023-01-28] MEDS: NICOTINE 10 MG CARTRIDGE (INHALER) IH PRN (10:28)
[2023-01-28] MEDS: ATORVASTATIN CA 40 MG TABLET (FP) PO SCH (21:01)
[2023-01-28] MEDS: traZODone HCL 50 MG TABLET (FP) PO SCH (21:01)
[2023-01-28] MEDS: THIAMINE HCL 100 MG TABLET (FP) PO SCH (21:01)
[2023-01-28] MEDS: MELATONIN 5 MG TABLETS PO SCH (21:02)
[2023-01-29] MEDS: busPIRone HCL 10 MG TABLET (FP) PO SCH ×3 (06:41→21:17)
[2023-01-29] MEDS: ACAMPROSATE CALCIUM 333 MG TABLET.DR PO SCH ×3 (06:41→21:17)
[2023-01-29] MEDS: GABAPENTIN 100 MG CAPSULE PO SCH ×3 (06:41→21:17)
[2023-01-29] MEDS: hydrOXYzine PAMOATE 25 MG CAPSULE (FP) PO PRN ×2 (06:43→21:18)
[2023-01-29] MEDS: NICOTINE 10 MG CARTRIDGE (INHALER) IH PRN ×2 (06:46→13:23)
[2023-01-29] MEDS: NICOTINE POLACRILEX 4 MG GUM BUC PRN ×3 (06:47→21:17)
[2023-01-29] MEDS: PRENATAL VITAMINS W/ FOLIC ACID TABLET (FP) PO SCH (10:25)
[2023-01-29] MEDS: CARVEDILOL 12.5 MG TABLET (FP) PO SCH ×2 (10:25→21:17)
[2023-01-29] MEDS: ESCITALOPRAM OXALATE 10 MG TABLET PO SCH (10:25)
[2023-01-29] MEDS: CLOTRIMAZOLE 1% CREAM TP SCH ×2 (10:26→21:19)
[2023-01-29] MEDS: BUDESONIDE/FORMETEROL FUMARATE 80/4.5 mcg INHALER IH SCH ×2 (10:26→21:18)
[2023-01-29] MEDS: LOSARTAN POTASSIUM 50 MG TABLET PO SCH (10:27)
[2023-01-29] MEDS: ATORVASTATIN CA 40 MG TABLET (FP) PO SCH (21:17)
[2023-01-29] MEDS: traZODone HCL 50 MG TABLET (FP) PO SCH (21:17)
[2023-01-29] MEDS: MELATONIN 5 MG TABLETS PO SCH (21:17)
[2023-01-29] MEDS: THIAMINE HCL 100 MG TABLET (FP) PO SCH (21:17)
[2023-01-30] MEDS: ACAMPROSATE CALCIUM 333 MG TABLET.DR PO SCH ×3 (01:55→21:21)
[2023-01-30] MEDS: NICOTINE 10 MG CARTRIDGE (INHALER) IH PRN ×3 (06:31→21:23)
[2023-01-30] MEDS: GABAPENTIN 100 MG CAPSULE PO SCH ×3 (06:31→21:21)
[2023-01-30] MEDS: busPIRone HCL 10 MG TABLET (FP) PO SCH ×3 (06:31→21:21)
[2023-01-30] MEDS: NICOTINE POLACRILEX 4 MG GUM BUC PRN ×4 (06:33→21:23)
[2023-01-30] MEDS: BUDESONIDE/FORMETEROL FUMARATE 80/4.5 mcg INHALER IH SCH ×2 (10:07→21:20)
[2023-01-30] MEDS: CARVEDILOL 12.5 MG TABLET (FP) PO SCH ×2 (10:07→21:21)
[2023-01-30] MEDS: ESCITALOPRAM OXALATE 10 MG TABLET PO SCH (10:07)
[2023-01-30] MEDS: PRENATAL VITAMINS W/ FOLIC ACID TABLET (FP) PO SCH (10:07)
[2023-01-30] MEDS: LOSARTAN POTASSIUM 50 MG TABLET PO SCH (10:07)
[2023-01-30] MEDS: CLOTRIMAZOLE 1% CREAM TP SCH ×2 (10:08→21:23)
[2023-01-30] MEDS: hydrOXYzine PAMOATE 25 MG CAPSULE (FP) PO PRN ×2 (13:59→21:21)
[2023-01-30] MEDS: ATORVASTATIN CA 40 MG TABLET (FP) PO SCH (21:21)
[2023-01-30] MEDS: traZODone HCL 50 MG TABLET (FP) PO SCH (21:21)
[2023-01-30] MEDS: MELATONIN 5 MG TABLETS PO SCH (21:21)
[2023-01-30] MEDS: THIAMINE HCL 100 MG TABLET (FP) PO SCH (21:21)
[2023-01-31] MEDS: GABAPENTIN 100 MG CAPSULE PO SCH ×3 (06:23→21:26)
[2023-01-31] MEDS: busPIRone HCL 10 MG TABLET (FP) PO SCH ×3 (06:23→21:27)
[2023-01-31] MEDS: ACAMPROSATE CALCIUM 333 MG TABLET.DR PO SCH ×3 (06:23→21:27)
[2023-01-31] MEDS: NICOTINE 10 MG CARTRIDGE (INHALER) IH PRN ×3 (06:23→21:25)
[2023-01-31] MEDS: NICOTINE POLACRILEX 4 MG GUM BUC PRN ×3 (06:23→12:58)
[2023-01-31] MEDS: CLOTRIMAZOLE 1% CREAM TP SCH ×2 (10:09→21:28)
[2023-01-31] MEDS: PRENATAL VITAMINS W/ FOLIC ACID TABLET (FP) PO SCH (10:09)
[2023-01-31] MEDS: CARVEDILOL 12.5 MG TABLET (FP) PO SCH ×2 (10:10→21:27)
[2023-01-31] MEDS: LOSARTAN POTASSIUM 50 MG TABLET PO SCH (10:10)
[2023-01-31] MEDS: ESCITALOPRAM OXALATE 10 MG TABLET PO SCH (10:10)
[2023-01-31] MEDS: BUDESONIDE/FORMETEROL FUMARATE 80/4.5 mcg INHALER IH SCH ×2 (10:11→21:30)
[2023-01-31] MEDS: hydrOXYzine PAMOATE 25 MG CAPSULE (FP) PO PRN (10:13)
[2023-01-31] MEDS: traZODone HCL 50 MG TABLET (FP) PO SCH (21:26)
[2023-01-31] MEDS: ATORVASTATIN CA 40 MG TABLET (FP) PO SCH (21:27)
[2023-01-31] MEDS: MELATONIN 5 MG TABLETS PO SCH (21:27)
[2023-01-31] MEDS: THIAMINE HCL 100 MG TABLET (FP) PO SCH (21:48)
[2023-02-01] MEDS: GABAPENTIN 100 MG CAPSULE PO SCH ×3 (06:07→21:39)
[2023-02-01] MEDS: ACAMPROSATE CALCIUM 333 MG TABLET.DR PO SCH ×3 (06:07→21:39)
[2023-02-01] MEDS: busPIRone HCL 10 MG TABLET (FP) PO SCH ×3 (06:07→21:39)
[2023-02-01] MEDS: NICOTINE 10 MG CARTRIDGE (INHALER) IH PRN ×4 (06:07→21:45)
[2023-02-01] MEDS: NICOTINE POLACRILEX 4 MG GUM BUC PRN ×4 (06:08→21:41)
[2023-02-01] MEDS: hydrOXYzine PAMOATE 25 MG CAPSULE (FP) PO PRN (06:09)
[2023-02-01] MEDS: ESCITALOPRAM OXALATE 10 MG TABLET PO SCH (09:39)
[2023-02-01] MEDS: CARVEDILOL 12.5 MG TABLET (FP) PO SCH ×2 (09:39→21:39)
[2023-02-01] MEDS: PRENATAL VITAMINS W/ FOLIC ACID TABLET (FP) PO SCH (09:39)
[2023-02-01] MEDS: CLOTRIMAZOLE 1% CREAM TP SCH ×2 (09:40→21:40)
[2023-02-01] MEDS: LOSARTAN POTASSIUM 50 MG TABLET PO SCH (09:40)
[2023-02-01] MEDS: BUDESONIDE/FORMETEROL FUMARATE 80/4.5 mcg INHALER IH SCH ×2 (09:42→21:38)
[2023-02-01] MEDS: traZODone HCL 50 MG TABLET (FP) PO SCH (21:38)
[2023-02-01] MEDS: MELATONIN 5 MG TABLETS PO SCH (21:38)
[2023-02-01] MEDS: THIAMINE HCL 100 MG TABLET (FP) PO SCH (21:38)
[2023-02-01] MEDS: ATORVASTATIN CA 40 MG TABLET (FP) PO SCH (21:40)
[2023-02-02] MEDS: busPIRone HCL 10 MG TABLET (FP) PO SCH ×3 (05:55→21:25)
[2023-02-02] MEDS: GABAPENTIN 100 MG CAPSULE PO SCH ×3 (05:55→21:26)
[2023-02-02] MEDS: NICOTINE 10 MG CARTRIDGE (INHALER) IH PRN ×3 (05:55→21:27)
[2023-02-02] MEDS: ACAMPROSATE CALCIUM 333 MG TABLET.DR PO SCH ×3 (05:55→21:25)
[2023-02-02] MEDS: NICOTINE POLACRILEX 4 MG GUM BUC PRN ×4 (06:19→21:28)
[2023-02-02] MEDS: PRENATAL VITAMINS W/ FOLIC ACID TABLET (FP) PO SCH (09:55)
[2023-02-02] MEDS: LOSARTAN POTASSIUM 50 MG TABLET PO SCH (09:55)
[2023-02-02] MEDS: CLOTRIMAZOLE 1% CREAM TP SCH ×2 (09:55→21:26)
[2023-02-02] MEDS: BUDESONIDE/FORMETEROL FUMARATE 80/4.5 mcg INHALER IH SCH ×2 (09:55→21:54)
[2023-02-02] MEDS: CARVEDILOL 12.5 MG TABLET (FP) PO SCH ×2 (09:55→21:26)
[2023-02-02] MEDS: ESCITALOPRAM OXALATE 10 MG TABLET PO SCH (09:55)
[2023-02-02] MEDS: COLLOIDAL OATMEAL 1 BAR EACH TP PRN (09:56)
[2023-02-02 10:08] VITALS: RESP 18
[2023-02-02] MEDS: hydrOXYzine PAMOATE 25 MG CAPSULE (FP) PO PRN ×2 (13:10→21:27)
[2023-02-02] MEDS: ATORVASTATIN CA 40 MG TABLET (FP) PO SCH (21:26)
[2023-02-02] MEDS: traZODone HCL 50 MG TABLET (FP) PO SCH (21:26)
[2023-02-02] MEDS: MELATONIN 5 MG TABLETS PO SCH (21:27)
[2023-02-02] MEDS: THIAMINE HCL 100 MG TABLET (FP) PO SCH (21:54)
[2023-02-03] MEDS: NICOTINE 10 MG CARTRIDGE (INHALER) IH PRN ×3 (07:05→17:38)
[2023-02-03] MEDS: NICOTINE POLACRILEX 4 MG GUM BUC PRN ×3 (07:06→14:21)
[2023-02-03] MEDS: ACAMPROSATE CALCIUM 333 MG TABLET.DR PO SCH ×3 (07:06→21:29)
[2023-02-03] MEDS: busPIRone HCL 10 MG TABLET (FP) PO SCH ×3 (07:06→21:29)
[2023-02-03] MEDS: GABAPENTIN 100 MG CAPSULE PO SCH ×3 (07:06→21:29)
[2023-02-03] MEDS: ESCITALOPRAM OXALATE 10 MG TABLET PO SCH (09:58)
[2023-02-03] MEDS: PRENATAL VITAMINS W/ FOLIC ACID TABLET (FP) PO SCH (09:58)
[2023-02-03] MEDS: CARVEDILOL 12.5 MG TABLET (FP) PO SCH ×2 (09:58→21:29)
[2023-02-03] MEDS: LOSARTAN POTASSIUM 50 MG TABLET PO SCH (09:58)
[2023-02-03] MEDS: CLOTRIMAZOLE 1% CREAM TP SCH ×2 (09:58→21:31)
[2023-02-03] MEDS: BUDESONIDE/FORMETEROL FUMARATE 80/4.5 mcg INHALER IH SCH ×2 (09:58→21:30)
[2023-02-03] MEDS: hydrOXYzine PAMOATE 25 MG CAPSULE (FP) PO PRN (17:38)
[2023-02-03] MEDS: IBUPROFEN 400 MG TABLET (FP) PO PRN (17:38)
[2023-02-03] MEDS: THIAMINE HCL 100 MG TABLET (FP) PO SCH (21:28)
[2023-02-03] MEDS: traZODone HCL 50 MG TABLET (FP) PO SCH (21:29)
[2023-02-03] MEDS: ATORVASTATIN CA 40 MG TABLET (FP) PO SCH (21:29)
[2023-02-03] MEDS: MELATONIN 5 MG TABLETS PO SCH (21:31)
[2023-02-04] MEDS: ACAMPROSATE CALCIUM 333 MG TABLET.DR PO SCH ×3 (06:33→21:19)
[2023-02-04] MEDS: GABAPENTIN 100 MG CAPSULE PO SCH ×3 (06:33→21:19)
[2023-02-04] MEDS: busPIRone HCL 10 MG TABLET (FP) PO SCH ×3 (06:33→21:19)
[2023-02-04] MEDS: NICOTINE 10 MG CARTRIDGE (INHALER) IH PRN ×4 (06:34→21:20)
[2023-02-04] MEDS: NICOTINE POLACRILEX 4 MG GUM BUC PRN ×3 (06:34→21:20)
[2023-02-04] MEDS: ESCITALOPRAM OXALATE 10 MG TABLET PO SCH (09:58)
[2023-02-04] MEDS: LOSARTAN POTASSIUM 50 MG TABLET PO SCH (09:58)
[2023-02-04] MEDS: PRENATAL VITAMINS W/ FOLIC ACID TABLET (FP) PO SCH (09:58)
[2023-02-04] MEDS: BUDESONIDE/FORMETEROL FUMARATE 80/4.5 mcg INHALER IH SCH ×2 (09:58→21:21)
[2023-02-04] MEDS: CARVEDILOL 12.5 MG TABLET (FP) PO SCH ×2 (09:59→21:19)
[2023-02-04] MEDS: hydrOXYzine PAMOATE 25 MG CAPSULE (FP) PO PRN ×2 (10:01→21:20)
[2023-02-04] MEDS: CLOTRIMAZOLE 1% CREAM TP SCH ×2 (14:45→21:21)
[2023-02-04] MEDS: THIAMINE HCL 100 MG TABLET (FP) PO SCH (21:19)
[2023-02-04] MEDS: ATORVASTATIN CA 40 MG TABLET (FP) PO SCH (21:19)
[2023-02-04] MEDS: traZODone HCL 50 MG TABLET (FP) PO SCH (21:19)
[2023-02-04] MEDS: MELATONIN 5 MG TABLETS PO SCH (21:21)
[2023-02-05] MEDS: NICOTINE POLACRILEX 4 MG GUM BUC PRN ×5 (06:11→21:16)
[2023-02-05] MEDS: busPIRone HCL 10 MG TABLET (FP) PO SCH ×3 (06:11→21:14)
[2023-02-05] MEDS: ACAMPROSATE CALCIUM 333 MG TABLET.DR PO SCH ×3 (06:11→21:14)
[2023-02-05] MEDS: GABAPENTIN 100 MG CAPSULE PO SCH ×3 (06:11→21:14)
[2023-02-05] MEDS: NICOTINE 10 MG CARTRIDGE (INHALER) IH PRN ×3 (06:11→18:18)
[2023-02-05] MEDS: hydrOXYzine PAMOATE 25 MG CAPSULE (FP) PO PRN ×2 (06:13→21:15)
[2023-02-05] MEDS: LOSARTAN POTASSIUM 50 MG TABLET PO SCH (09:49)
[2023-02-05] MEDS: ESCITALOPRAM OXALATE 10 MG TABLET PO SCH (09:49)
[2023-02-05] MEDS: BUDESONIDE/FORMETEROL FUMARATE 80/4.5 mcg INHALER IH SCH ×2 (09:49→21:14)
[2023-02-05] MEDS: PRENATAL VITAMINS W/ FOLIC ACID TABLET (FP) PO SCH (09:49)
[2023-02-05] MEDS: CLOTRIMAZOLE 1% CREAM TP SCH ×2 (09:50→21:16)
[2023-02-05] MEDS: IBUPROFEN 400 MG TABLET (FP) PO PRN (09:51)
[2023-02-05] MEDS: CARVEDILOL 12.5 MG TABLET (FP) PO SCH ×2 (09:53→21:14)
[2023-02-05] MEDS: ATORVASTATIN CA 40 MG TABLET (FP) PO SCH (21:14)
[2023-02-05] MEDS: THIAMINE HCL 100 MG TABLET (FP) PO SCH (21:14)
[2023-02-05] MEDS: traZODone HCL 50 MG TABLET (FP) PO SCH (21:15)
[2023-02-05] MEDS: MELATONIN 5 MG TABLETS PO SCH (21:15)
[2023-02-06] MEDS: NICOTINE 10 MG CARTRIDGE (INHALER) IH PRN ×2 (06:14→09:56)
[2023-02-06] MEDS: busPIRone HCL 10 MG TABLET (FP) PO SCH (06:14)
[2023-02-06] MEDS: ACAMPROSATE CALCIUM 333 MG TABLET.DR PO SCH (06:14)
[2023-02-06] MEDS: GABAPENTIN 100 MG CAPSULE PO SCH (06:14)
[2023-02-06] MEDS: NICOTINE POLACRILEX 4 MG GUM BUC PRN (06:16)
[2023-02-06 07:02] VITALS: BP 133/86; PULSE 62; TEMP 97.5
[2023-02-06] MEDS: LOSARTAN POTASSIUM 50 MG TABLET PO SCH (09:56)
[2023-02-06] MEDS: CARVEDILOL 12.5 MG TABLET (FP) PO SCH (09:56)
[2023-02-06] MEDS: PRENATAL VITAMINS W/ FOLIC ACID TABLET (FP) PO SCH (09:56)
[2023-02-06] MEDS: CLOTRIMAZOLE 1% CREAM TP SCH (09:56)
[2023-02-06] MEDS: ESCITALOPRAM OXALATE 10 MG TABLET PO SCH (09:56)
[2023-02-06] MEDS: BUDESONIDE/FORMETEROL FUMARATE 80/4.5 mcg INHALER IH SCH (09:56)
== END 2023-02-06 10:09 | disposition home or self-care (01) | DRG 772 ==
LOC: YASAS 12:42 → Y3W 12:45
PROVIDERS: ADMIT Allergy & Immunology; ATTEND Psychiatry & Neurology Pain Medicine
PROC: HZ42ZZZ Group Counseling for Substance Abuse Treatment, Cognitive-Behavioral (ICD-10-PCS; principal; 2023-01-23)
DX: F10.20 Alcohol dependence, uncomplicated (principal); F12.20 Cannabis dependence, uncomplicated; F17.210 Nicotine dependence, cigarettes, uncomplicated; F10.282 Alcohol dependence with alcohol-induced sleep disorder; F41.9 Anxiety disorder, unspecified; F32.A Depression, unspecified; E78.5 Hyperlipidemia, unspecified; I10 Essential (primary) hypertension; I25.2 Old myocardial infarction; J44.9 Chronic obstructive pulmonary disease, unspecified; B35.3 Tinea pedis; B35.1 Tinea unguium
CPT/HCPCS: 36415; 82140; 86803

== ENCOUNTER 2023-02-09 01:13 | Inpatient (IN) | payer OTHER ==
[2023-02-09] MEDS ORDERED: METHOCARBAMOL 500 MG TABLET PO PRN (01:29)
[2023-02-09] MEDS ORDERED: MAGNESIUM HYDROX 2400MG/30ML ORAL SUSPENSION 30 ML CUP PO PRN (01:29)
[2023-02-09] MEDS ORDERED: DICYCLOMINE HCL 10 MG CAPSULE PO PRN (01:29)
[2023-02-09] MEDS ORDERED: ONDANSETRON *ODT* 4 MG TABLET SL PRN (01:29)
[2023-02-09] MEDS ORDERED: NALOXONE HCL (KLOXXADO) 8 MG SPRAY NS PRN (01:29)
[2023-02-09] MEDS ORDERED: POLYETHYLENE GLYCOL (HEALTHYLAX) 3350 17 GM PACKET PO PRN (01:29)
[2023-02-09] MEDS ORDERED: ACETAMINOPHEN 325 MG TABLET (FP) PO PRN (01:29)
[2023-02-09] MEDS ORDERED: guaiFENesin 600 MG TABLET.ER (FP) PO PRN (01:29)
[2023-02-09] MEDS ORDERED: BENZOCAINE/MENTHOL (CHLORASEPTIC ) LOZENGE MM PRN (01:29)
[2023-02-09] MEDS ORDERED: NALOXONE HCL 0.4 MG/ML VIAL IM PRN (01:29)
[2023-02-09] MEDS ORDERED: BISMUTH SUBSALICYLATE 524 MG/30 ML PO PRN (01:29)
[2023-02-09] MEDS ORDERED: LOPERAMIDE HCL 2 MG CAPSULE PO PRN (01:29)
[2023-02-09] MEDS ORDERED: MAG HYDROX/AL HYDROX/SIMETH 30 ML UNIT-DOSE CUP PO PRN (01:29)
[2023-02-09] MEDS ORDERED: IBUPROFEN 400 MG TABLET (FP) PO PRN (01:29)
[2023-02-09] MEDS ORDERED: IBUPROFEN 600 MG TABLET (FP) PO PRN (01:29)
[2023-02-09] MEDS ORDERED: BENZONATATE 200 MG CAPSULE PO PRN (01:29)
[2023-02-09 01:37] VITALS: BMI 24.8
[2023-02-09] MEDS ORDERED: ALBUTEROL SO4 HFA INHALER IH PRN (01:37)
[2023-02-09] MEDS ORDERED: hydrOXYzine PAMOATE 50 MG CAPSULE (FP) PO ONE (01:59)
[2023-02-09] MEDS ORDERED: diazePAM 5 MG TABLET ONE ×2 (07:11→12:17)
[2023-02-09] MEDS ORDERED: ONDANSETRON *ODT* 4 MG TABLET ONE (07:11)
[2023-02-09] MEDS ORDERED: ACETAMINOPHEN 325 MG TABLET (FP) ONE (07:11)
[2023-02-09] MEDS: diazePAM 5 MG TABLET PO PRN ×3 (07:15→20:26)
[2023-02-09] MEDS ORDERED: CARVEDILOL 12.5 MG TABLET (FP) PO SCH (10:00)
[2023-02-09] MEDS: NICOTINE 21 MG/24 HOURS TOPICAL PATCH TD SCH (10:38)
[2023-02-09] MEDS: PRENATAL VITAMINS W/ FOLIC ACID TABLET (FP) PO SCH (10:38)
[2023-02-09] MEDS: LOSARTAN POTASSIUM 50 MG TABLET PO SCH (10:38)
[2023-02-09] MEDS: BUDESONIDE/FORMETEROL FUMARATE 80/4.5 mcg INHALER IH SCH ×2 (10:38→22:50)
[2023-02-09] MEDS ORDERED: CARVEDILOL 6.25 MG TABLET (FP) PO SCH (21:48)
[2023-02-09] MEDS ORDERED: ATORVASTATIN CA 40 MG TABLET (FP) PO SCH (22:00)
[2023-02-09] MEDS ORDERED: THIAMINE HCL 100 MG TABLET (FP) PO SCH (22:00)
[2023-02-09] MEDS ORDERED: MELATONIN 5 MG TABLETS PO SCH (22:00)
[2023-02-09] MEDS ORDERED: COLLOIDAL OATMEAL 1 BAR EACH TP PRN (22:09)
[2023-02-09] MEDS: CARVEDILOL 6.25 MG TABLET (FP) PO SCH (22:50)
[2023-02-09] MEDS: hydrOXYzine PAMOATE 25 MG CAPSULE (FP) PO PRN (22:50)
[2023-02-09] MEDS: NICOTINE POLACRILEX 2 MG GUM BUC PRN (23:05)
[2023-02-10 09:57] VITALS: BP 134/85; PULSE 81; RESP 17; TEMP 97.5
[2023-02-10] MEDS: PRENATAL VITAMINS W/ FOLIC ACID TABLET (FP) PO SCH (10:30)
[2023-02-10] MEDS: BUDESONIDE/FORMETEROL FUMARATE 80/4.5 mcg INHALER IH SCH (10:30)
[2023-02-10] MEDS: CARVEDILOL 6.25 MG TABLET (FP) PO SCH (10:31)
[2023-02-10] MEDS: LOSARTAN POTASSIUM 50 MG TABLET PO SCH (10:32)
[2023-02-10] MEDS: NICOTINE POLACRILEX 2 MG GUM BUC PRN (10:33)
[2023-02-10] MEDS: NICOTINE 21 MG/24 HOURS TOPICAL PATCH TD SCH (10:33)
[2023-02-10] MEDS: hydrOXYzine PAMOATE 25 MG CAPSULE (FP) PO PRN (10:34)
== END 2023-02-10 16:36 | disposition home or self-care (01) | DRG 775 ==
LOC: YASAS 01:13 → Y6N 09:24
PROVIDERS: ADMIT Allergy & Immunology; ATTEND Surgery
PROC: HZ2ZZZZ Detoxification Services for Substance Abuse Treatment (ICD-10-PCS; principal; 2023-02-09)
DX: F10.230 Alcohol dependence with withdrawal, uncomplicated (principal); F17.213 Nicotine dependence, cigarettes, with withdrawal; F41.8 Other specified anxiety disorders; E78.00 Pure hypercholesterolemia, unspecified; I10 Essential (primary) hypertension; I25.2 Old myocardial infarction; R07.9 Chest pain, unspecified
CPT/HCPCS: 87635; Q0162

== ENCOUNTER 2023-02-09 03:47 | Emergency (ER) | payer OTHER ==
[2023-02-09 03:56] VITALS: BP 161/98; PULSE 83; RESP 17; TEMP 98.1; BMI 25.5
[2023-02-09] MEDS ORDERED: traZODone HCL 150 MG TABLET PO ONE (04:03)
[2023-02-09] MEDS ORDERED: IBUPROFEN 400 MG TABLET (FP) PO ONE ×2 (05:03→05:16)
== END 2023-02-09 07:00 | disposition home or self-care (01) ==
LOC: JER 03:47
DX: G47.9 Sleep disorder, unspecified (principal); R51.9 Headache, unspecified
CPT/HCPCS: 99283-25